=== PATIENT | female | born 1960 | race Caucasian/White ===

== ENCOUNTER → 2017-07-21 | Day surgery (SDC) | payer BC ==
[~2017-07-21] MED LIST: LIDOCAINE 2% 100 MG/5 ML SYRINGE.; PROPOFOL 20 ML IV
[2017-07-21] MEDS: IV RINGERS,LACTATED 1000ML 1,000 ML IV (15:26)
== END | disposition home or self-care (01) ==
LOC: ENDOS 14:52
DX: K29.50 Unspecified chronic gastritis without bleeding (principal); F17.210 Nicotine dependence, cigarettes, uncomplicated; E03.9 Hypothyroidism, unspecified; M19.90 Unspecified osteoarthritis, unspecified site; Z98.51 Tubal ligation status; K21.9 Gastro-esophageal reflux disease without esophagitis; K76.9 Liver disease, unspecified
CPT/HCPCS: 43235; J2704

== ENCOUNTER → 2019-05-19 | Outpatient (CLI) | payer BC, OTHER ==
[2017-07-21 16:52] VITALS: BP 134/59
[~2019-05-19] MED LIST changes: +LEVO88TA4 PO; -LIDOCAINE 2% 100 MG/5 ML SYRINGE.; +OMEP20CA16 PO; -PROPOFOL 20 ML IV
--- NOTE | 2019-05-19 11:36 | KCIC ---
Small bowel follow-through study 06/14/2019 CLINICAL HISTORY: Abdominal pain and diarrhea. TECHNIQUE: A small bowel follow-through study was performed under radiographic and fluoroscopic control. The total fluoroscopic time is 38 seconds. Two Digital spot radiographs of the right lower quadrant of the abdomen were obtained. FINDINGS: Comparison is made to the patient's CT scan of the abdomen and pelvis dated 05/05/2019. 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 This demonstrates a nonobstructive bowel gas pattern. No radiopaque calculus is seen. Degenerative changes are seen involving the mid and lower lumbar spine along with both hips. The mucosal pattern of the duodenum, jejunum, ileum, and terminal ileum is within normal limits. The small bowel transit time is within normal limits. The cecum is in its normal location within the right lower quadrant of the abdomen. No extrinsic mass effect upon the small bowel is seen. IMPRESSION: Negative study. Electronically signed by: Piter Rosales MD (05/19/2019 11:33 AM) [id number]
== END ==
LOC: KCIC 08:01
PROVIDERS: ATTEND Internal Medicine Gastroenterology
DX: R10.9 Unspecified abdominal pain (principal); R19.7 Diarrhea, unspecified; M16.0 Bilateral primary osteoarthritis of hip; M47.816 Spondylosis without myelopathy or radiculopathy, lumbar region
CPT/HCPCS: 74250